=== PATIENT | male | born 1960 | race Caucasian/White ===

== ENCOUNTER 2019-01-03 13:22 | Emergency (ER) | payer OTHER, SELFPAY ==
[2019-01-03 13:27] VITALS: BP 144/88; PULSE 77; RESP 18; TEMP 36.7; O2SAT 95
--- NOTE | 2019-01-03 13:45 | W.ED.GENAD ---
Discharge Plan Disposition Patient Disposition: HOME Condition: Good Discharge Details Chief Complaint: DentalOral Clinical Impression: Infected dental carries Primary Care Provider: Tiara Escamilla ED Provider: Jaxson Floyd Home Meds and New Rx's Prescriptions: New acetaminophen [Mapap Extra Strength] 500 MG tablet 1,000 mg PO Q6H 5 Days Qty: 60 RF: 0 ibuprofen [Motrin IB] 200 MG tablet 600 mg PO Q6H 5 Days Qty: 60 RF: 0 amoxicillin-pot clavulanate 875-125 mg tablet 1 tab PO BID Qty: 14 RF: 0 No Action aspirin [Aspir-81] 81 MG tablet,delayed release (DR/EC) 81 mg PO DAILY RF: 0 lancets [BlacklaneTouch UltraSoft Lancets] 1 EACH misc 1 ea Miscellaneous BID Qty: 100 RF: 5 furosemide [Lasix] 40 MG tablet 40 mg PO PRN Qty: 90 RF: 1 blood sugar diagnostic [OneTouch Ultra Test] 1 EACH strip 1 ea Miscellaneous BID Qty: 100 RF: 5 glipizide 10 MG tablet extended release 24hr 20 mg PO DAILY Qty: 180 RF: 5 Atorvastatin Calcium 20 MG tablet 20 mg PO DAILY Qty: 90 RF: 3 amlodipine 10 MG tablet 10 mg PO DAILY Qty: 90 RF: 3 metformin 1,000 MG tablet 1,000 mg PO BID Qty: 180 RF: 3 allopurinol 300 MG tablet 300 mg PO DAILY Qty: 90 RF: 3 Januvia 100 mg tablet 100 mg PO DAILY Qty: 90 RF: 3 lisinopril 10 mg tablet 10 mg PO DAILY Qty: 90 RF: 3 atenolol 50 mg tablet 150 mg PO DAILY Qty: 270 RF: 3 Discharge Instructions Instructions: Dental Caries (ED) Additional Instructions: Please take medication as directed. Please follow-up immediately with your dentist. If you notice any worsening of your symptoms, or any new symptoms such as vomiting, diarrhea, fever, chills, shortness of breath, chest pain, numbness, weakness, or fainting , please return immediately to the emergency department for reevaluation. Please follow up with your primary care provider as soon as possible for reassessment and reevaluation. As always, it was a pleasure participating in your medical care today. Referrals: Tiara Escamilla MD [Primary Care Provider] - Discharge Data Discharge Date/Time-TO BE ENTERED AT DEPARTURE: 01/03/19 13:55 Medical Decision Making This is a pleasant 58-year-old male who presents today for evaluation of left upper dental pain and mild facial swelling. He has notable dental caries. No evidence of abscess on exam. He has not yet seen a dentist. Vital signs are reassuring, no evidence of meningitis, headache, fever or chills. With no evidence of abscess, I do not think that there is any indication for incision and drainage. The patient does not want to any dental block for pain control. We will give her prescription for antibiotics, as well as the dental sheet for information for dentist to contact. Discussed red flags which to return and the importance of follow-up with a dentist for definitive management. I have extensively reviewed the treatment plan and discharge instructions with the patient. I have addressed all patient concerns at this time. The patient was made aware of what symptoms to monitor for that would warrant a return to the emergency department. Discussed the plan with the patient, they demonstrate verbal understanding and agreement with our assessment and plan at this time. HPI General Date/Time Provider Initiated Documentation: 01/03/19 13:38. HPI Narrative: This is a 58-year-old male who presents for evaluation of dental pain. The patient states that 2 days ago he was eating peanuts, and felt something get stuck in his tooth, since then he has been having worsening pain and swelling for his left upper teeth, as well as some swelling in his left face. He came today for evaluation of potential infection versus abscess. He has a history of very poor dental health, and was not seen a dentist. He denies any concerning red flags of fever, chills, headache, or neck pain. He denies any discharge from his mouth. He denies any recent antibiotics. He has taken Tylenol and Motrin and this is notably improved his symptoms. He has no other complaints or modifying factors at this time. Related Data Home Medications Medication Instructions Recorded Confirmed aspirin [Aspir 81] 81 mg PO DAILY tab-cap 10/29/13 lancets [Onetouch Lancets] #100 ea 05/26/16 blood sugar diagnostic [Onetouch #100 strip 09/17/17 Ultra Test Strips] furosemide [Lasix] 40 mg PO PRN #90 tab-cap 09/17/17 glipizide 20 mg PO DAILY #180 tab-cap 01/07/18 allopurinol 300 mg PO DAILY #90 tab-cap 03/04/18 amlodipine 10 mg PO DAILY #90 tab-cap 03/04/18 metformin 1,000 mg PO BID #180 tab-cap 03/04/18 01/03/19 sitagliptin 100 mg tablet 100 mg PO DAILY #90 tab-cap 18 01/03/19 lisinopril 10 mg tablet 10 mg PO DAILY #90 tab-cap 10/08/18 01/03/19 atenolol 50 mg tablet 150 mg PO DAILY #270 tab-cap 10/09/18 acetaminophen [Mapap Extra 1,000 mg PO Q6H 5 Days #60 tab 01/03/19 Strength] amoxicillin-pot clavulanate 1 tab PO BID #14 tab 01/03/19 ibuprofen [Motrin Ib] 600 mg PO Q6H 5 Days #60 tab 01/03/19 Previous Rx's Medication Instructions Recorded blood sugar diagnostic [Onetouch #100 strip 09/17/17 Ultra Test Strips] furosemide [Lasix] 40 mg PO PRN #90 tab-cap 09/17/17 glipizide 20 mg PO DAILY #180 tab-cap 01/07/18 allopurinol 300 mg PO DAILY #90 tab-cap 03/04/18 amlodipine 10 mg PO DAILY #90 tab-cap 03/04/18 metformin 1,000 mg PO BID #180 tab-cap 03/04/18 sitagliptin 100 mg tablet 100 mg PO DAILY #90 tab-cap 09/19/18 lisinopril 10 mg tablet 10 mg PO DAILY #90 tab-cap 10/08/18 atenolol 50 mg tablet 150 mg PO DAILY #270 tab-cap 10/09/18 acetaminophen [Mapap Extra 1,000 mg PO Q6H 5 Days #60 tab 01/03/19 Strength] amoxicillin-pot clavulanate 1 tab PO BID #14 tab 01/03/19 ibuprofen [Motrin Ib] 600 mg PO Q6H 5 Days #60 tab 01/03/19 Allergies Allergy/AdvReac Type Severity Reaction Status Date / Time No Known Allergies Allergy Unverified 03/04/18 15:48 General Stated Complaint: DentalOral JOHN: 4 Review of Systems Review of Systems All systems reviewed & are unremarkable except as noted in HPI and below PFSH Surgical History Appendectomy Social History Smoking and Tabacco status: Former Tobacco Use Exam Narrative Exam Narrative: 1.Const: Well-nourished, Well-developed, appearing stated age 2.Eyes: PERRL, no conjunctival injection, and symmetrical lids. 3.ENT: Atraumatic external nose and ears. Moist MM. Neck: Symmetric, trachea midline, No thyromegaly. Notable dental caries and very poor dentition. No evidence of periapical or dental abscess. Minimal swelling on the side of the face, no fluctuance, no signs of abscess. No evidence of involvement in the eye. Patient demonstrates good movement of cervical neck. There is no nuchal rigidity, no nuchal tenderness. Patient is able to flex the neck without any difficulty or significant pain. Negative Kernig's and Brudzinski sign. 4.CVS: +S1/S2, No murmurs or gallops. Peripheral pulses 2+ and equal in all extremities. Brisk capillary refill in all extremities. 5.RESP: Unlabored respiratory effort. Clear to auscultation bilaterally. No wheezes rales or rhonchi 6.GI: Soft, Nontender/Nondistended, No hepatosplenomegaly. No guarding or rebound. 7.MSK: Normocephalic/Atraumatic, Extremities w/o deformity or ttp No cyanosis or clubbing, Normal movement of all extremities 8.Skin: Warm, Dry. No rashes or lesions. 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 Sensation grossly intact, no focal neurologic deficits. 10.Psych: (AAO) x3. Appropriate mood and affect Course Vital Signs Temperature 36.7 C 01/03/19 13:27 Pulse 77 01/03/19 13:27 Respiratory Rate 18 01/03/19 13:27 Blood Pressure 144/88 H 01/03/19 13:27 Pulse Oximetry 95 01/03/19 13:27 Temperature 36.7 C 01/03/19 13:27 Temperature Source Temporal Artery Scan 01/03/19 13:27 Pulse 77 01/03/19 13:27 Respiratory Rate 18 01/03/19 13:27 Respiratory Effort Non-Labored 01/03/19 13:29 Blood Pressure 144/88 H 01/03/19 13:27 Blood Pressure Position Sitting 01/03/19 13:27 Pulse Oximetry 95 01/03/19 13:27 Oxygen Delivery Method Room Air 01/03/19 13:27 Oxygen Flow Rate 0 01/03/19 13:27 Pain Level 0 01/03/19 13:37
== END 2019-01-03 13:55 | disposition home or self-care (01) ==
PROVIDERS: Emergency Provider Student in an Organized Health Care Education/Training Program; PCP Internal Medicine
DX: K02.9 Dental caries, unspecified (principal); K04.7 Periapical abscess without sinus; R22.0 Localized swelling, mass and lump, head; E11.9 Type 2 diabetes mellitus without complications; Z79.84 Long term (current) use of oral hypoglycemic drugs; I10 Essential (primary) hypertension
CPT/HCPCS: 99283

== ENCOUNTER 2019-01-17 01:07 | Outpatient (CLI) | payer OTHER, SELFPAY ==
[2019-01-17 10:32] LABS: Abs Immature Grans 0.07 k/cumm (0.0-0.09); HCT 35.4 % (40.0-50.0); HGB 11.8 g/dL (13.5-17.5); Mean Corp. HGB Concentration 33.3 g/dL (32.0-36.0); Mean Corpuscular Hemoglobin 29.1 pg (27.0-33.0); Mean Corpuscular Volume 87.2 fL (80-95); Mean Platelet Volume 10.3 fL (8.0-11.0); Platelet Count 322 x1000/uL (130-400); RBC 4.06 m/cumm (4.50-6.00); RBC Distribution Width 12.9 % (11.8-14.1); White Blood Cell Count 12.36 k/cumm (4.4-10.8)
[2019-01-17 11:09] LABS: Absolute Lymphocyte Count 1.98 k/cumm (1.2-3.4); Atypical Lymphocytes % 3
[2019-01-17 11:10] LABS: Absolute Eosinophil Count 1.61 k/cumm (0.0-0.7); Absolute Monocyte Count 0.62 k/cumm (0.11-0.7); Absolute Neutrophil Count 8.16 k/cumm (1.2-6.7); Diff Comment Manual Differential; RBC Morphology Normal
[2019-01-17 11:49] LABS: ALT 40 U/L (12-78); AST 28 U/L (15-37); Albumin 2.8 g/dL (3.4-5.0); Alkaline Phosphatase 72 U/L (46-116); Anion Gap 11.9 mmol/L (3-11); BUN 44 mg/dL (7-18); Bilirubin, Total 0.4 mg/dL (0.2-1.0); C-Reactive Protein 8.75 mg/dL (0.0-0.3); CO2 26.1 mmol/L (21.0-32.0); CREATININE 1.42 mg/dL (0.70-1.30); Calcium 7.9 mg/dL (8.5-10.1); Chloride 99 mmol/L (98-107); Estimated GFR 50.85 (mL/min/1.73m2); Glucose 152 mg/dL (70-100); Potassium 3.9 mmol/L (3.5-5.1); Sodium 137 mmol/L (136-145); Total Protein 6.9 g/dL (6.4-8.2)
== END 2019-01-17 01:27 ==
PROVIDERS: PCP Internal Medicine; Visit Provider Emergency Medicine
DX: R21 Rash and other nonspecific skin eruption (principal)
CPT/HCPCS: 36415; 80053; 85025; 86140

== ENCOUNTER 2019-01-21 01:06 | Outpatient (CLI) | payer OTHER, SELFPAY ==
[2019-01-21 08:05] LABS: HCT 37.6 % (40.0-50.0); HGB 12.4 g/dL (13.5-17.5); Mean Corpuscular Volume 88.1 fL (80-95); Mean Platelet Volume 10.6 fL (8.0-11.0); Platelet Count 394 x1000/uL (130-400); RBC 4.27 m/cumm (4.50-6.00); RBC Distribution Width 13.1 % (11.8-14.1); White Blood Cell Count 13.86 k/cumm (4.4-10.8)
[2019-01-21 08:16] LABS: Prothrombin Time 10.1 sec (9.3-11.0)
[2019-01-21 08:39] LABS: Absolute Basophil Count 0.14 k/cumm (0.0-0.2); Absolute Eosinophil Count 0.28 k/cumm (0.0-0.7); Absolute Lymphocyte Count 3.19 k/cumm (1.2-3.4); Absolute Monocyte Count 0.97 k/cumm (0.11-0.7); Absolute Neutrophil Count 9.29 k/cumm (1.2-6.7)
[2019-01-21 08:40] LABS: Diff Comment Manual Differential; Polychromasia Present
[2019-01-21 08:41] LABS: Poikilocytes 1+
[2019-01-21 09:31] LABS: ALT 39 U/L (12-78); AST 17 U/L (15-37); Albumin 3.3 g/dL (3.4-5.0); Alkaline Phosphatase 73 U/L (46-116); Anion Gap 11.7 mmol/L (3-11); BUN 20 mg/dL (7-18); Bilirubin, Total 0.4 mg/dL (0.2-1.0); C-Reactive Protein 1.52 mg/dL (0.0-0.3); CO2 27.3 mmol/L (21.0-32.0); CREATININE 1.16 mg/dL (0.70-1.30); Calcium 9.2 mg/dL (8.5-10.1); Chloride 100 mmol/L (98-107); Glucose 297 mg/dL (70-100); Potassium 4.5 mmol/L (3.5-5.1); Sodium 139 mmol/L (136-145); Total Protein 7.2 g/dL (6.4-8.2)
== END 2019-01-21 01:26 ==
PROVIDERS: Emergency Medicine; PCP Internal Medicine; Visit Provider Internal Medicine
DX: T50.905A Adverse effect of unspecified drugs, medicaments and biological substances, initial encounter (principal)
CPT/HCPCS: 36415; 80053; 85025; 85610; 86140

== ENCOUNTER 2019-01-22 09:27 | Outpatient (CLI) | payer OTHER, SELFPAY ==
[2019-01-22 11:36] LABS: Abs Immature Grans 0.31 k/cumm (0.0-0.09); Absolute Lymphocyte Count 1.73 k/cumm (1.2-3.4); HCT 37.9 % (40.0-50.0); HGB 12.2 g/dL (13.5-17.5); Mean Corp. HGB Concentration 32.2 g/dL (32.0-36.0); Mean Corpuscular Hemoglobin 28.4 pg (27.0-33.0); Mean Corpuscular Volume 88.1 fL (80-95); Platelet Count 388 x1000/uL (130-400); White Blood Cell Count 10.79 k/cumm (4.4-10.8)
[2019-01-22 11:59] LABS: Hemoglobin A1C 9.6 % (4.5-6.2)
[2019-01-22 12:01] LABS: Absolute Eosinophil Count 0.43 k/cumm (0.0-0.7); Absolute Monocyte Count 0.65 k/cumm (0.11-0.7); Absolute Neutrophil Count 7.77 k/cumm (1.2-6.7); Diff Comment Manual Differential; Polychromasia Present
[2019-01-22 12:06] LABS: ALT 39 U/L (12-78); AST 16 U/L (15-37); Albumin 3.3 g/dL (3.4-5.0); Alkaline Phosphatase 75 U/L (46-116); Anion Gap 9.7 mmol/L (3-11); BUN 17 mg/dL (7-18); Bilirubin, Total 0.4 mg/dL (0.2-1.0); CO2 28.3 mmol/L (21.0-32.0); CREATININE 1.05 mg/dL (0.70-1.30); Calcium 9.5 mg/dL (8.5-10.1); Chloride 100 mmol/L (98-107); Glucose 371 mg/dL (70-100); Potassium 5.3 mmol/L (3.5-5.1); Sodium 138 mmol/L (136-145); Total Protein 7.3 g/dL (6.4-8.2)
[2019-01-22 12:26] LABS: ESR 38 MM/HR (1-20)
== END 2019-01-22 09:47 ==
PROVIDERS: PCP Internal Medicine; Visit Provider Internal Medicine
DX: E11.9 Type 2 diabetes mellitus without complications (principal); I10 Essential (primary) hypertension
CPT/HCPCS: 36415; 80053; 85652; 83036; 85025

== ENCOUNTER 2019-07-21 10:02 | Outpatient (CLI) | payer OTHER, SELFPAY ==
[2019-07-21 12:34] LABS: Abs Immature Grans 0.02 k/cumm (0.0-0.09); Absolute Basophil Count 0.05 k/cumm (0.0-0.2); Absolute Eosinophil Count 0.27 k/cumm (0.0-0.7); Absolute Lymphocyte Count 1.22 k/cumm (1.2-3.4); Absolute Monocyte Count 0.69 k/cumm (0.11-0.7); Absolute Neutrophil Count 8.01 k/cumm (1.2-6.7); Basophils % 0.5; Eosinophils % 2.6; HGB 13.7 g/dL (13.5-17.5); Immature Grans % 0.2; Lymphocytes % 11.9; Mean Corp. HGB Concentration 32.6 g/dL (32.0-36.0); Mean Corpuscular Hemoglobin 29.2 pg (27.0-33.0); Mean Corpuscular Volume 89.6 fL (80-95); Mean Platelet Volume 11.5 fL (8.0-11.0); Monocytes % 6.7; Neutrophils % 78.1; Platelet Count 380 x1000/uL (130-400); RBC 4.69 m/cumm (4.50-6.00); RBC Distribution Width 13.4 % (11.8-14.1); White Blood Cell Count 10.26 k/cumm (4.4-10.8)
[2019-07-21 12:43] LABS: ALT 53 U/L (16-63); AST 25 U/L (15-37); Albumin 3.6 g/dL (3.4-5.0); Alkaline Phosphatase 70 U/L (46-116); Anion Gap 15.3 mmol/L (3-11); BUN 14 mg/dL (7-18); Bilirubin, Total 0.3 mg/dL (0.2-1.0); CO2 24.7 mmol/L (21.0-32.0); CREATININE 1.17 mg/dL (0.70-1.30); Calcium 9.9 mg/dL (8.5-10.1); Chloride 100 mmol/L (98-107); Glucose 386 mg/dL (70-100); Potassium 4.5 mmol/L (3.5-5.1); Sodium 140 mmol/L (136-145); Total Protein 7.5 g/dL (6.4-8.2)
== END 2019-07-21 10:22 ==
PROVIDERS: PCP Internal Medicine; Visit Provider Internal Medicine
DX: E11.9 Type 2 diabetes mellitus without complications (principal); R21 Rash and other nonspecific skin eruption; F50.9 Eating disorder, unspecified
CPT/HCPCS: 36415; 80053; 85025

== ENCOUNTER 2021-06-03 09:17 | Outpatient (REF) | payer OTHER, SELFPAY ==
[2021-06-03 14:18] LABS: CREATININE 1.1 mg/dL (0.70-1.30); Potassium 4.2 mmol/L (3.5-5.1)
[2021-06-03 14:22] LABS: Hemoglobin A1C 11.5 % (<5.7)
[2021-06-03 19:28] LABS: Calculated LDL 90 mg/dL (<100); Cholesterol 179 mg/dL (<200); HDL Cholesterol 44 mg/dL (40-60); Triglyceride 228 mg/dL (<150)
== END 2021-06-03 09:18 | disposition home or self-care (01) ==
LOC: LBN 09:17
PROVIDERS: PCP Nurse Practitioner; Visit Provider Nurse Practitioner
DX: E78.5 Hyperlipidemia, unspecified (principal); I10 Essential (primary) hypertension; E11.65 Type 2 diabetes mellitus with hyperglycemia
CPT/HCPCS: 80061; 82565; 83036; 84132

== ENCOUNTER 2022-07-06 16:03 | Outpatient (REF) | payer BC, SELFPAY ==
[2022-07-06 22:00] LABS: Hemoglobin A1C 11.7 % (<5.7)
[2022-07-06 22:04] LABS: Anion Gap 12.5 mmol/L (3-11); BUN 17 mg/dL (7-18); CO2 27.5 mmol/L (21.0-32.0); CREATININE 1.1 mg/dL (0.70-1.30); Calcium 9.8 mg/dL (8.5-10.1); Chloride 100 mmol/L (98-107); Cholesterol 210 mg/dL (<200); Glucose 420 mg/dL (74-106); HDL Cholesterol 44 mg/dL (40-60); Potassium 4.5 mmol/L (3.5-5.1); Sodium 140 mmol/L (136-145); Triglyceride 541 mg/dL (<150)
[2022-07-06 22:26] LABS: LDL CHOLESTEROL 103 mg/dL (<100)
== END 2022-07-06 16:04 | disposition home or self-care (01) ==
LOC: LBN 16:03
PROVIDERS: PCP Nurse Practitioner; Visit Provider Nurse Practitioner
DX: I10 Essential (primary) hypertension (principal); E78.5 Hyperlipidemia, unspecified; E11.9 Type 2 diabetes mellitus without complications
CPT/HCPCS: 80048; 80061; 83721; 83036

== ENCOUNTER 2023-03-06 20:33 | Outpatient (REF) | payer BC, SELFPAY | END 2023-03-06 20:34 | disposition home or self-care (01) | LOC: LBN 20:33 | PROVIDERS: PCP Nurse Practitioner Family; Visit Provider Nurse Practitioner Family | DX: E11.65 Type 2 diabetes mellitus with hyperglycemia (principal) | CPT/HCPCS: 83036 ==

== ENCOUNTER 2023-08-09 08:11 | Emergency (ER) | payer BC, SELFPAY ==
[2023-08-09] VITALS (10 sets, daily range): BP systolic 164–167; BP diastolic 84–85; PULSE 84–106; RESP 18; O2SAT 91–96
--- NOTE | 2023-08-09 08:25 | DI.CT_ITS ---
Exam(s) CT ABDOMEN PELVIS WO CLINICAL HISTORY: . TECHNIQUE: Imaging Protocol: Axial computed tomography images with coronal and sagittal reformatted images were created and reviewed. COMPARISON: No exams were available for comparison FINDINGS: Lung Bases: Normal where visualized. Adrenal glands: No mass is seen. Lymph nodes: Within normal limits. Abdominal Aorta: Abdominal portion non-dilated. Bladder:Symmetric distention. Mild gross wall thickening. No stones. No visible mass. Bowel: Mild diverticulosis. No evidence of diverticulitis. No obstruction or bowel wall thickening. Peritoneal cavity: No ascites, collection or mesenteric inflammatory response Reproductive organs: Markedly enlarged prostate. Bones: Degenerative changes, unremarkable for age. Soft Tissues: Within normal limits. Liver: Mildly enlarged. [id number] hepatic steatosis. No suspicious mass. Gallbladder and biliary tract: No radiodense calculus. No biliary dilation. Nowall thickening. Pancreas: No abnormal calcifications or inflammatory process. Spleen: Normal. Kidneys: Normal size, contour and axis. No radiodense stones. No obstructive uropathy. Bilateral s imple renal cysts. No follow-up recommended. No suspicious masses seen. IMPRESSION: Bilateral renal cysts. No evidence urinary tract calculi or hydronephrosis. Markedly enlarged prostate and mild bladder wall thickening. RADIATION DOSE DELIVERED: 1,162.39mGy.cm Total DLP 1,162.39mGy.cm Total DLP 1,162.39mGy.cm Total DLP 1,162.39mGy.cm Total DLP DATA REPOSITORY: All CT scans at this facility are submitted to the National Radiology Data Registry (NRDR) Dose Index Registry (DIR) with the [employer] (ACR). RADIATION OPTIMIZATION: All CT scans at this facility use at least one of these dose optimization te chniques: automated exposure control; mA and/or kV adjustment per patient size (includes targeted exa ms where dose is matched to clinical indication); or iterative reconstruction.
--- NOTE | 2023-08-09 09:41 | ED.GENADUL_ITS ---
Discharge Plan Disposition Patient Disposition: Home Discharge Details Chief Complaint: FlankPain Clinical Impression: Left flank pain Primary Care Provider: Yuly Waters ED Provider: Jaxson Floyd Home Meds and New Rx's Prescriptions: No Action amlodipine 10 mg tablet 10 mg PO DAILY Qty: 90 4RF atenolol 50 mg tablet 50 mg PO DAILY Qty: 90 4RF Rx Instructions: total dose 150 mg metformin 1,000 mg tablet 1,000 mg PO BID Qty: 180 3RF (DME) OneTouch Ultra Blue Test Strip Strip See Rx Instructions .ROUTE .MEDSUPPLY Qty: 100 4RF Rx Instructions: 2 times daily lisinopril 30 mg tablet 30 mg PO DAILY Qty: 90 3RF Januvia 100 mg tablet 100 mg PO DAILY Qty: 90 3RF atorvastatin 20 mg tablet 20 mg PO DAILY Qty: 90 3RF glipizide 10 mg tablet extended release 24hr 20 mg PO DAILY Qty: 180 3RF aspirin [Aspir-81] 81 MG tablet,delayed release (DR/EC) 81 mg PO DAILY (DME) lancets [OneTouch UltraSoft Lancets] 1 EACH misc 1 ea Miscellaneous BID Qty: 100 Rx Instructions: ultra mini glucometer E11.9 (DME) OneTouch Ultra Test strip 1 ea Miscellaneous BID Qty: 100 5RF Rx Instructions: ultramini glucometer E11.9 allopurinol 300 mg tablet 300 mg PO DAILY Qty: 90 4RF atenolol 100 mg tablet 100 mg PO DAILY Qty: 90 4RF Discharge Instructions Instructions: Flank Pain (ED) Additional Instructions: At this time your CAT scan shows no evidence of current kidney stone. I do suspect that you may have passed a kidney stone, or may have some bladder irritation causing the pain. Please follow-up closely with Dr. Harmon. We have placed a referral on your behalf. They will contact you with an appointment time. Please continue to take your diabetes medications, and stay well- hydrated. If you notice any worsening of your symptoms, or any new symptoms such as vomiting, diarrhea, fever, chills, shortness of breath, chest pain, numbness, weakness, or fainting , please return immediately to the emergency department for reevaluation. Please follow up with your primary care provider as soon as possible for reassessment and reevaluation. As always, it was a pleasure participating in your medical care today. Referrals: Yuly Waters NP [Primary Care Provider] - Medical Decision Making Please refer to downtime documentation Patient was seen on downtime. Please refer to downtime paperwork. In summary patient has left-sided flank pain that radiates to his left groin for the past week, states that it feels identical to his previous kidney stones. 11:47 AM On reassessment the patient states that his pain has completely resolved, and he feels much better. Laboratory work-up demonstrates minimal white count, electrolytes demonstrate a slightly low sodium at 130, renal function with a creatinine of 1.4 and a GFR 55. Urinalysis shows some ketones, small amount of blood and RBCs, no evidence of UTI though. No nitrites, no leuk esterase. Suspect mild dehydration as a component. Blood sugar is high, we will give some subcutaneous insulin here, recommend continued medications at home. That being said symptoms appear inconsistent with DKA. Bicarb is normal. Patient appears clinically well, no tachycardia, he was rehydrated here and appears notably stable. CT scan shows no evidence of significant stone, there is an enlarged prostate and some mild bladder wall thickening. He did urinate and shows no evidence of UTI. Suspect recently passed stone, or potential bladder irritation from noninfectious etiology. Patient will be discharged home with recommendations for close follow-up with urology. Discussed red flags for which to return. I have extensively reviewed the treatment plan and discharge instructions with the patient. I have addressed all patient concerns at this time. The patient was made aware of what symptoms to monitor for that would warrant a return to the emergency department. Discussed the plan with the patient, they demonstrate verbal understanding and agreement with our assessment and plan at this time. The documentation in this chart was dictated using [employer] dictation software. Please excuse any dictation errors. FINDINGS: Lung Bases: Normal where visualized. Adrenal glands: No mass is seen. Lymph nodes: Within normal limits. Abdominal Aorta: Abdominal portion non-dilated. Bladder:Symmetric distention. Mild gross wall thickening. No stones. No visible mass. Bowel: Mild diverticulosis. No evidence of diverticulitis. No obstruction or bowel wall thickening. Peritoneal cavity: No ascites, collection or mesenteric inflammatory response Reproductive organs: Markedly enlarged prostate. Bones: Degenerative changes, unremarkable for age. Soft Tissues: Within normal limits. Liver: Mildly enlarged. [id number] hepatic steatosis. No suspicious mass. Gallbladder and biliary tract: No radiodense calculus. No biliary dilation. Nowall thickening. Pancreas: No abnormal calcifications or inflammatory process. Spleen: Normal. Kidneys: Normal size, contour and axis. No radiodense stones. No obstructive uropathy. Bilateral simple renal cysts. No follow-up recommended. No suspicious masses seen. IMPRESSION: Bilateral renal cysts. No evidence urinary tract calculi or hydronephrosis. Markedly enlarged prostate and mild bladder wall thickening. HPI General Date/Time Provider Initiated Documentation: 08/09/23 09:41 . HPI Narrative: Patient was seen on downtime. Please refer to downtime paperwork. In summary patient has left-sided flank pain that radiates to his left groin for the past week, states that it feels identical to his previous kidney stones. Related Data Home Medications Medication Instructions Recorded Confirmed aspirin 81 mg tablet,delayed 81 mg PO DAILY 10/29/13 05/10/23 release (Aspir-) lancets (A[employer] Mobile Assets CorporationTouch UltraSoft #100 ea 05/26/16 05/10/23 Lancets) blood sugar diagnostic (OneTouch #100 strips 01/27/19 05/10/23 Ultra Test strips) blood sugar diagnostic (OneTouch #100 ea 03/23/20 05/10/23 Ultra Blue Test Strip) amlodipine 10 mg tablet 10 mg PO DAILY #90 tab-caps 06/12/22 05/10/23 atenolol 50 mg tablet 50 mg PO DAILY #90 tabs 06/12/22 05/10/23 metformin 1,000 mg tablet 1,000 mg PO BID #180 tab-caps 06/12/22 05/10/23 lisinopril 30 mg tablet 30 mg PO DAILY #90 tabs 12/12/22 05/10/23 allopurinol 300 mg tablet 300 mg PO DAILY #90 tab-caps 01/03/23 05/10/23 atorvastatin 20 mg tablet 20 mg PO DAILY #90 tabs 03/06/23 05/10/23 glipizide 10 mg tablet, extended 20 mg PO DAILY #180 tab-caps 03/06/23 05/10/23 release 24 hr sitagliptin phosphate 100 mg 100 mg PO DAILY #90 tab-caps 03/06/23 05/10/23 tablet (Januvia) atenolol 100 mg tablet 100 mg PO DAILY #90 tabs 07/03/23 Previous Rx's Medication Instructions Recorded blood sugar diagnostic (OneTouch #100 strips 01/27/19 Ultra Test strips) blood sugar diagnostic (OneTouch #100 ea 03/23/20 Ultra Blue Test Strip) amlodipine 10 mg tablet 10 mg PO DAILY #90 tab-caps 06/12/22 atenolol 50 mg tablet 50 mg PO DAILY #90 tabs 06/12/22 metformin 1,000 mg tablet 1,000 mg PO BID #180 tab-caps 06/12/22 lisinopril 30 mg tablet 30 mg PO DAILY #90 tabs 12/12/22 allopurinol 300 mg tablet 300 mg PO DAILY #90 tab-caps 01/03/23 atorvastatin 20 mg tablet 20 mg PO DAILY #90 tabs 03/06/23 glipizide 10 mg tablet, extended 20 mg PO DAILY #180 tab-caps 03/06/23 release 24 hr sitagliptin phosphate 100 mg 100 mg PO DAILY #90 tab-caps 03/06/23 tablet (Januvia) atenolol 100 mg tablet 100 mg PO DAILY #90 tabs 07/03/23 Allergies Allergy/AdvReac Type Severity Reaction Status Date / Time amoxicillin [From Augmentin] Allergy Severe severe Verified 05/10/23 08:34 rash with itching clavulanic acid Allergy Severe severe Verified 05/10/23 08:34 [From Augmentin] rash with itching General JOHN: 4 Review of Systems All systems reviewed & are unremarkable except as noted in HPI and below PFSH All Active Problems (Updated 08/09/23 @ 11:52 by Jaxson Floyd DO) Left flank pain (Acute) Gout (Acute) Diabetes mellitus type II, uncontrolled (Chronic) Essential hypertension (Acute) Hyperlipidemia (Acute) Obesity (Acute) Retinopathy (Acute 05/15/17) 05/15/17; [facility]; RIGHT EYE, MILD 02/18/18;[facility] LEFT EYE MILD RETINOPATHY 09/26/21 [facility] MILD RETINOPATHY OU. 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 Surgical History Appendectomy Status post appendectomy Social History Smoking/Tobacco Use Status: Former Tobacco Use Tobacco: How many years used: 4 Smoking risk assessment performed?: Yes Alcohol Intake: former Drug use: Never Caregiver/Support person: No Household members: family Housing: house Communication Needs: None and Corrective Lenses Do you need help understanding health information?: Never Pets and animals: No Sexually active: No Do you think of yourself as: bisexual Current gender identity: male What is your relationship status?: never How often do you talk on the phone with friends or family?: twice per week How often do you get together with friends or relatives?: twice per week How often do you attend holiness or mormon services?: decline to answer Do you belong to any clubs or organized social groups?: no Panel score (0-1 are the most socially isolated patients): 1 What type of physical activity do you participate in: walking Duration: 15-30 minutes/day Frequency: 3-4 times per week Deedee/Anglican: No preference Special deedee needs: No Seatbelt use: always Helmet use: No Drive 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
[2023-08-09] MEDS: Acetaminophen 500 MG TAB (10:20)
[2023-08-09] MEDS: Ketorolac 15 MG/ML VIAL (10:21)
[2023-08-09] MEDS: Tamsulosin 0.4 MG CAPCR PO (10:22)
[2023-08-09 11:21] LABS: Absolute Basophil Count 0.02 10^3/uL (0.0-0.2); Absolute Monocyte Count 0.14 10^3/uL (0.1-0.8); Absolute Neutrophil Count 11.46 10^3/uL (1.2-6.7); Basophils % 0.2; HCT 38.1 % (40.0-50.0); HGB 13.1 g/dL (13.5-17.5); Immature Grans % 0.5; Lymphocytes % 5.7; MCH 29.4 pg (27.0-33.0); MCHC 34.4 % (32.0-36.0); MCV 86 fL (80-95); MPV 11.1 fL (8.0-11.0); Monocytes % 1.1; Neutrophils % 92.5; Platelet Count 337 10^3/uL (130-400); RBC 4.45 10^6/uL (4.36-5.78); RDW 12.4 % (11.8-14.1); RDW-SD 38.5 fL; WBC 12.38 10^3/uL (4.4-10.8)
[2023-08-09 11:22] LABS: Abs Immature Grans 0.06 10^3/uL (0.0-0.06); Albumin 3.3 g/dL (3.4-5.0); BUN 21 mg/dL (7-18); CREATININE 1.4 mg/dL (0.70-1.30); Calcium 9.6 mg/dL (8.5-10.1); Estimated GFR 55.78 (mL/min/1.73m2); Glucose 480 mg/dL (74-106); Total Protein 7.8 g/dL (6.4-8.2)
[2023-08-09 11:23] LABS: ALT 19 U/L (16-63); AST 12 U/L (15-37); Alkaline Phosphatase 75 U/L (46-116); Anion Gap 16.9 mmol/L (3-11); Bilirubin, Total 0.7 mg/dL (0.2-1.0); CO2 22.1 mmol/L (21.0-32.0); Chloride 91 mmol/L (98-107); Potassium 4.2 mmol/L (3.5-5.1); Sodium 130 mmol/L (136-145)
[2023-08-09 11:32] LABS: Bilirubin Negative (Negative); Blood Small (Negative); Clarity Sl Cloudy (Clear); Glucose >=1000 mg/dL (Negative); Ketones 80 mg/dL (Negative); Leukocyte Esterase Negative (Negative); Nitrite Negative (Negative); Specific Gravity 1.015 (1.005-1.025); Urobilinogen 0.2 mg/dL (Up to 0.2)
[2023-08-09 11:42] LABS: Bacteria Few HPF (Negative); C & S Indicated? No/Sq. Contamination; Casts Negative LPF (Negative); Crystals Negative HPF (Negative); Epithelial Cells Moderate HPF (Negative); Mucus Trace (Negative); WBC 0-2 HPF (0-5)
--- NOTE | 2023-08-09 11:52 | NUR.NOTE ---
Nursing Note: urology referral
[2023-08-09] MEDS: Insulin REGULAR-Human 100 UNITS/ML UNIT 15 UNITS SC (12:06)
== END 2023-08-09 12:57 | disposition home or self-care (01) ==
PROVIDERS: Emergency Provider Student in an Organized Health Care Education/Training Program; PCP Nurse Practitioner Family
DX: K57.30 Diverticulosis of large intestine without perforation or abscess without bleeding (principal); Q61.02 Congenital multiple renal cysts; N40.0 Benign prostatic hyperplasia without lower urinary tract symptoms; I10 Essential (primary) hypertension; E78.5 Hyperlipidemia, unspecified; Z79.84 Long term (current) use of oral hypoglycemic drugs; Z79.82 Long term (current) use of aspirin
CPT/HCPCS: 80053; 96374; 99284; 74176; 81003; 81015; 85025; 99283; J1885

== ENCOUNTER 2023-08-12 15:19 | Emergency (ER) | payer BC, SELFPAY ==
[2023-08-12 15:23] VITALS: BP 149/84; PULSE 70; RESP 16; TEMP 36.9; O2SAT 96
[2023-08-12] MEDS: MORPHine 10 MG/ML VIAL 2 MG IVP (16:04)
[2023-08-12 16:08] LABS: Abs Immature Grans 0.06 10^3/uL (0.0-0.06); Absolute Basophil Count 0.06 10^3/uL (0.0-0.2); Absolute Lymphocyte Count 1.54 10^3/uL (1.2-3.4); Absolute Monocyte Count 1.25 10^3/uL (0.1-0.8); Basophils % 0.5; Eosinophils % 0.8; HCT 42.4 % (40.0-50.0); HGB 14.3 g/dL (13.5-17.5); Immature Grans % 0.5; Lymphocytes % 12.1; MCHC 33.7 % (32.0-36.0); MCV 86 fL (80-95); MPV 10.7 fL (8.0-11.0); Monocytes % 9.8; Neutrophils % 76.3; Platelet Count 372 10^3/uL (130-400); RBC 4.93 10^6/uL (4.36-5.78); RDW 12.5 % (11.8-14.1); RDW-SD 38.9 fL; WBC 12.74 10^3/uL (4.4-10.8)
[2023-08-12] MEDS: Ondansetron 4 MG/2 ML VIAL (16:08)
[2023-08-12] MEDS: Ondansetron 4 MG/2 ML VIAL IVP (16:08)
[2023-08-12 16:13] LABS: Absolute Neutrophil Count 9.72 10^3/uL (1.2-6.7)
[2023-08-12 16:24] LABS: ALT 18 U/L (16-63); AST 10 U/L (15-37); Albumin 3.4 g/dL (3.4-5.0); Alkaline Phosphatase 82 U/L (46-116); Anion Gap 10.5 mmol/L (3-11); BUN 17 mg/dL (7-18); Bilirubin, Total 0.5 mg/dL (0.2-1.0); C-Reactive Protein 1.15 mg/dL (0.0-0.3); CO2 28.5 mmol/L (21.0-32.0); CREATININE 1.2 mg/dL (0.70-1.30); Calcium 10.5 mg/dL (8.5-10.1); Chloride 96 mmol/L (98-107); Estimated GFR 67.11 (mL/min/1.73m2); Glucose 332 mg/dL (74-106); Lipase 78 U/L (16-77); Sodium 135 mmol/L (136-145); Total Protein 8.2 g/dL (6.4-8.2)
[2023-08-12] MEDS: Normal Saline - Diluent 50 ML VIAL IJ (16:29)
[2023-08-12] MEDS: Omnipaque 350 MG/ML 100 ML BTL IJ (16:30)
[2023-08-12] MEDS: Normal Saline Flush 10 ML SYR IVP (16:40)
--- NOTE | 2023-08-12 16:53 | DI.CT_ITS ---
Exam(s) CT LUMBAR SPINE RECONS CT ABDOMEN PELVIS W EXAM: CT ABDOMEN PELVIS W CLINICAL HISTORY: left flank and llq pain. TECHNIQUE: Imaging Protocol: Axial computed tomography images with coronal and sagittal reformatted images were created and reviewed Axial, coronal and sagittal images of the lumbar spine were reconstructed using bone algorithm. CONTRAST MATERIAL: Intravenous: Omnipaque 350 Contrast volume:100 ml Oral: / no COMPARISON: CT CT ABDOMEN PELVIS WO from 08/09/[address] LUMBAR SPINE RECONS from 08/12/2023 FINDINGS: ABDOMEN and PELVIS:: Lung Bases: Normal where visualized. Liver: Mild hepatic steatosis. No measurable mass. Gallbladder and biliary tract: No radiodense calculus or dilation. Pancreas: Normal density, no abnormal calcifications or inflammatory process. Spleen: Normal. Kidneys: Normal size, contour and axis. No radiodense stones or obstructive uropathy. Bilateral may l cysts. No suspicious masses seen. Adrenal glands: No masses seen. Vasculature: Abdominal aorta non-dilated. Soft tissues: Small fatty containing right inguinal hernia. Bladder: Mild diffuse wall thickening. No calculi.No focal mass. Bowel: Abnormal wall thickening of the duodenum. Surrounding stranding and question of small ulcerat ions. No perforation. No obstruction. Diverticulosis. No evidence of diverticulitis. Peritoneal cavity: No ascites or focal collection. Bones: Unremarkable for age. Reproductive organs: Enlarged prostate. Lymph nodes: Unremarkable. Lumbar Spine: No evidence of acute fracture. No spondylolysis or spondylolisthesis. Endplate osteophytes throughout, flowing osteophytes in the lower thoracic region. Prominent right-sided osteophytes at L2-3. L3-4: Broad-based disc bulging, eccentric toward the left. Question of superior extrusion of disc ma terial behind the L3 vertebral body. Moderate central canal stenosis. Left neural foraminal narrowi ng. Mild narrowing of the L4-5 disc space. Circumferentially projecting osteophytes and disc bulging. L eft paracentral disc protrusion appears to impinge on thecal sac. Mild facet degenerative changes. Mild central canal stenosis. Mild neural foraminal narrowing. Mild disc bulging at L5-S1. Facet degenerative changes cause bilateral neural foraminal encroachment . IMPRESSION:: Wall thickening and surrounding stranding the duodenum consistent with duodenitis. Que stion of small ulcers but no evidence of perforation. Degenerative changes of the lumbar spine. Left paracentral disc herniations at L3-4 and L4-5. RADIATION DOSE DELIVERED: Total DLP DATA REPOSITORY: All CT scans at this facility are submitted to the National Radiology Data Registry (NRDR) Dose Index Registry (DIR) with the [employer] (ACR). RADIATION OPTIMIZATION: All CT scans at this facility use at least one of these dose optimization te chniques: automated exposure control; mA and/or kV adjustment per patient size (includes targeted exa ms where dose is matched to clinical indication); or iterative reconstruction.
--- NOTE | 2023-08-12 17:20 | DI.VRAD_ITS ---
PROCEDURE INFORMATION: Exam: CT Abdomen And Pelvis With Contrast Exam date and time: 08/12/2023 4:39 PM Age: 63 years old Clinical indication: Other: Left flank and llq pain; Prior surgery; Surgery date: 6+ months; Surgery type: Appendectomy TECHNIQUE: Imaging protocol: Computed tomography of the abdomen and pelvis with contrast. Contrast material: OMNIPAQUE 350; Contrast volume: 100 ml; Contrast route: INTRAVENOUS (IV); COMPARISON: CT ABDOMEN PELVIS WO 08/09/2023 9:26 AM FINDINGS: Diaphragm: There is a small hiatal hernia. Liver: There is mild hepatic steatosis. Gallbladder and bile ducts: Normal. No calcified stones. No ductal dilation. Pancreas: See Stomach and bowel finding. Spleen: Normal. No splenomegaly. Adrenal glands: Normal. No mass. Kidneys and ureters: There are multiple cysts in the bilateral kidneys of varying sizes. The dominant cyst in the left upper pole kidney medially which measures up to 4.9 cm., some of these cysts are too small to be characterized. Stomach and bowel: There is mild mucosal thickening of the 1st and 2nd portion of duodenum with inner mucosal enhancement. There is a small ulcerations suspected (44 series 5, 41 series 6 ) There is mild paraduodenal edema which extends to the head of the pancreas and to the right anterior pararenal space . There is diverticulosis of the sigmoid colon without focal acute inflammation. No bowel obstruction. Appendix: No evidence of appendicitis. Intraperitoneal space: Unremarkable. No free air. No significant fluid collection. Vasculature: Unremarkable. No abdominal aortic aneurysm. Lymph nodes: Unremarkable. No enlarged lymph nodes. Urinary bladder: Prostate is enlarged elevating the floor of the urinary bladder. Reproductive: See Urinary bladder finding. Bones/joints: Disc degenerative changes with mild loss of disc height at L4-L5. Soft tissues: There is small fat containing right inguinal hernia. IMPRESSION: 1. Mild mucosal thickening and mucosal enhancement of the duodenal bulb and 2nd portion of duodenum may represent duodenitis. There is small ulcerations suspected and may represent peptic ulcer disease. The edema extends to the periduodenal region and right anterior pararenal space. Other differential may include peraduodenal pancreatitis. Consider clinical correlation with lipase. 2. Prostatomegaly. 3. No hydronephrosis or nephrolithiasis. Dictated and Authenticated by: Clark Jara MD. Ordering:MATTHEW Mcfarland MD
[2023-08-12 17:29] LABS: Bilirubin Negative (Negative); Blood Small (Negative); Clarity Clear (Clear); Glucose 500 mg/dL (Negative); Ketones Negative (Negative); Leukocyte Esterase Negative (Negative); Nitrite Negative (Negative); Urobilinogen 0.2 mg/dL (Up to 0.2); pH 5.5 (5-8)
[2023-08-12 17:41] LABS: Bacteria Few HPF (Negative); Crystals Negative HPF (Negative); Epithelial Cells Moderate HPF (Negative); Mucus Moderate (Negative); WBC 0-2 HPF (0-5)
[2023-08-12 17:42] LABS: C & S Indicated? No/Sq. Contamination; Casts 0-2 Hyaline LPF (Negative)
--- NOTE | 2023-08-12 18:06 | DI.VRAD_ITS ---
Addendum created by Clark Jara DO on 08/12/2023 6:18:36 PM EDT: CT abdomen and pelvis from the same day is also utilized in the report of this examination. Initial report created on 08/12/2023 6:06:31 PM EDT: PROCEDURE INFORMATION: Exam: CT Lumbar Spine Without Contrast Exam date and time: 08/12/2023 4:39 PM Age: 63 years old Clinical indication: Other: Llq pain TECHNIQUE: Imaging protocol: Computed tomography of the lumbar spine without contrast. COMPARISON: CT ABDOMEN PELVIS WO 08/09/2023 9:[address] abdominal pelvis with IV contrast 08/12/2023. FINDINGS: Bones/joints: No acute fracture. Mild levoscoliosis of the lumbar spine. Normal alignment. Disc degenerative changes with mild to moderate loss of disc height at L4-L5. No significant disc bulge or herniation. No severe spinal canal stenosis. No significant neural foraminal narrowing. L1-L2: Mild posterior disc bulge. There is no significant spinal canal or right neural foraminal stenosis. Mild encroachment of the disc to the left neural foramen. L2-L3: No significant posterior contour abnormality. There is no spinal canal stenosis or neural foraminal stenosis. Mild bilateral facet arthropathy. L3-L4: There is disc bulge asymmetric to the left. There is suspicion of superior central disc protrusion. Ligamentum flavum hypertrophy and ukpf-fr-uqoixyfc bilateral facet arthropathy contribute to ojgh-px-bwjbitvx spinal canal stenosis. There is mild left neural foraminal stenosis due to disc encroachment. There is no right neural foraminal stenosis. L4-L5: Mild spinal canal stenosis due to posterior spurring, disc bulge, ligamentum flavum hypertrophy and nfje-xa-puqnjkks bilateral facet arthropathy. Mild left neural foraminal stenosis due to disc encroachment. Kcpq-te-ajquenwe right neural foraminal stenosis due to disc encroachment and spurring. L5-S1: No significant posterior contour abnormality. There is no spinal canal stenosis. Nsiw-ln-srvpular bilateral facet arthropathy. There is moderate bilateral neural foraminal stenosis due to spurring left greater than right. Kidneys and ureters: There are cysts in the bilateral kidneys. The dominant cyst in the left upper pole kidney medially has thin calcification along the medial wall. There is cysts in the bilateral kidneys. Reproductive: Prostate is enlarged. Soft tissues: Unremarkable. IMPRESSION: 1. No acute fracture or subluxation. 2. At L3-L4, there is a disc bulge asymmetric to the left. There is superimposed superior central disc extrusion which may contribute to tgiv-lh-qydejefv spinal canal stenosis. This can be further evaluated with an MRI if the patient continues to have symptoms . Additional degenerative changes are described above. Dictated and Authenticated by: Clark Jara MD. Ordering:MATTHEW Mcfarland MD
--- NOTE | 2023-08-12 18:16 | NUR.NOTE ---
Referral will be faxed to NeuroSurgery at [facility] due to Lumbar Radiculopath on the Left side. Nursing Note:
[2023-08-12 18:30] VITALS: BP 152/88; TEMP 36.4; O2SAT 94
--- NOTE | 2023-08-12 21:43 | ED.GENADUL_ITS ---
Discharge Plan Disposition Patient Disposition: Home Condition: Stable Discharge Details Clinical Impression: Herniated lumbar intervertebral disc Primary Care Provider: Yuly Waters ED Provider: Bruna Tariq Home Meds and New Rx's Prescriptions: New cyclobenzaprine 10 mg tablet 10 mg PO TID PRNQty: 10 0RF methylprednisolone [Medrol (Jeremy)] 4 mg tablets,dose pack See Rx Instructions .ROUTE .COMPLEX Qty: 21 0RF Rx Instructions: orally per package directions Continued amlodipine 10 mg tablet 10 mg PO DAILY Qty: 90 4RF atenolol 50 mg tablet 50 mg PO DAILY Qty: 90 4RF Rx Instructions: total dose 150 mg metformin 1,000 mg tablet 1,000 mg PO BID Qty: 180 3RF (DME) OneTouch Ultra Blue Test Strip Strip See Rx Instructions .ROUTE .MEDSUPPLY Qty: 100 4RF Rx Instructions: 2 times daily lisinopril 30 mg tablet 30 mg PO DAILY Qty: 90 3RF Januvia 100 mg tablet 100 mg PO DAILY Qty: 90 3RF atorvastatin 20 mg tablet 20 mg PO DAILY Qty: 90 3RF glipizide 10 mg tablet extended release 24hr 20 mg PO DAILY Qty: 180 3RF aspirin [Aspir-81] 81 MG tablet,delayed release (DR/EC) 81 mg PO DAILY (DME) lancets [OneTouch UltraSoft Lancets] 1 EACH misc 1 ea Miscellaneous BID Qty: 100 Rx Instructions: ultra mini glucometer E11.9 (DME) OneTouch Ultra Test strip 1 ea Miscellaneous BID Qty: 100 5RF Rx Instructions: ultramini glucometer E11.9 allopurinol 300 mg tablet 300 mg PO DAILY Qty: 90 4RF atenolol 100 mg tablet 100 mg PO DAILY Qty: 90 4RF Discharge Instructions Additional Instructions: take Tylenol 650 every 4-6 hours May take oxycodone as needed for pain, and use sparingly as can be addictive let your doctor know you will likely need an MRI, you have a lumbar herniation to L3-L4 please return with changes in bowel bladder, worsening pain, or with any new or worsening complaints Referrals: Yuly Waters NP [Primary Care Provider] - Discharge Data Discharge Date/Time-TO BE ENTERED AT DEPARTURE: 08/12/23 18:33 Medical Decision Making 63-year-old male, no acute distress presenting with low back pain and flank pain with radiation to his left leg Patient is afebrile and nontoxic, he has negative straight leg raise, he is neurovascularly intact, he has no abdominal bruit or pulsatile mass, actually no left lower quadrant abdominal pain I did repeat a CT scan abdomen pelvis with contrast and images lumbar spine as well, he does have a herniated disc at L3-L4 He has no signs or symptoms consistent with cauda equina syndrome He is feeling improvement after medications, will send in a Medrol Dosepak, refer to neurosurgery, placed on small amount of oxycodone and give muscle relaxant Patient is stable for discharge home at this time, will place neurosurgery referral Return precautions reviewed and patient expressed understanding Exam with lumbar spine tenderness, sacroiliac tenderness, negative straight leg raise, negative Babinski, DTRs and strength and sensation intact distally, neurovascularly intact HPI General Date/Time Provider Initiated Documentation: 08/12/23 15:24 . HPI Narrative: 63-year-old male presents with report of left flank pain, seen here several days ago for similar presentation. States the pain is persistent and worsening. Denies any chest pain or shortness of breath. Denies any changes in bowel or bladder, denies any significant change in the midline back pain. Denies any nausea or vomiting. Denies any history of illicit drug use. States pain is alleviated when he is in the supine position only. Denies any numbness to the groin region. Denies fever. Denies urinary symptoms. Related Data Home Medications Medication Instructions Recorded Confirmed aspirin 81 mg tablet,delayed 81 mg PO DAILY 10/29/13 05/10/23 release (Aspir-) lancets (OneTouch UltraSoft #100 ea 05/26/16 05/10/23 Lancets) blood sugar diagnostic (FollowapTouch #100 strips 01/27/19 05/10/23 Ultra Test strips) blood sugar diagnostic (OneTouch #100 ea 03/23/20 05/10/23 Ultra Blue Test Strip) amlodipine 10 mg tablet 10 mg PO DAILY #90 tab-caps 06/12/22 05/10/23 atenolol 50 mg tablet 50 mg PO DAILY #90 tabs 06/12/22 05/10/23 metformin 1,000 mg tablet 1,000 mg PO BID #180 tab-caps 06/12/22 05/10/23 lisinopril 30 mg tablet 30 mg PO DAILY #90 tabs 12/12/22 05/10/23 allopurinol 300 mg tablet 300 mg PO DAILY #90 tab-caps 01/03/23 05/10/23 atorvastatin 20 mg tablet 20 mg PO DAILY #90 tabs 03/06/23 05/10/23 glipizide 10 mg tablet, extended 20 mg PO DAILY #180 tab-caps 03/06/23 05/10/23 release 24 hr sitagliptin phosphate 100 mg 100 mg PO DAILY #90 tab-caps 03/06/23 05/10/23 tablet (Januvia) atenolol 100 mg tablet 100 mg PO DAILY #90 tabs 07/03/23 cyclobenzaprine 10 mg tablet 10 mg PO TID PRN #10 tabs 08/12/23 methylprednisolone 4 mg tablets in See Rx Instructions PO .COMPLEX 08/12/23 a dose pack ([employer])) #21 dose pk Previous Rx's Medication Instructions Recorded blood sugar diagnostic (OneTouch #100 strips 01/27/19 Ultra Test strips) blood sugar diagnostic (OneTouch #100 ea 03/23/20 Ultra Blue Test Strip) amlodipine 10 mg tablet 10 mg PO DAILY #90 tab-caps 06/12/22 atenolol 50 mg tablet 50 mg PO DAILY #90 tabs 06/12/22 metformin 1,000 mg tablet 1,000 mg PO BID #180 tab-caps 06/12/22 lisinopril 30 mg tablet 30 mg PO DAILY #90 tabs 12/12/22 allopurinol 300 mg tablet 300 mg PO DAILY #90 tab-caps 01/03/23 atorvastatin 20 mg tablet 20 mg PO DAILY #90 tabs 03/06/23 glipizide 10 mg tablet, extended 20 mg PO DAILY #180 tab-caps 03/06/23 release 24 hr sitagliptin phosphate 100 mg 100 mg PO DAILY #90 tab-caps 03/06/23 tablet (Januvia) atenolol 100 mg tablet 100 mg PO DAILY #90 tabs 07/03/23 cyclobenzaprine 10 mg tablet 10 mg PO TID PRN #10 tabs 08/12/23 methylprednisolone 4 mg tablets in See Rx Instructions PO .COMPLEX 08/12/23 a dose pack (Medrol ([employer])) #21 dose pk Allergies Allergy/AdvReac Type Severity Reaction Status Date / Time amoxicillin [From Augmentin] Allergy Severe severe Verified 05/10/23 08:34 rash with itching clavulanic acid Allergy Severe severe Verified 05/10/23 08:34 [From Augmentin] rash with itching General Stated Complaint: FlankPain JOHN: 3 PFSH All Active Problems (Updated 08/12/23 @ 18:14 by ANSON Escobar) Left flank pain (Acute) Herniated lumbar intervertebral disc (Acute) Gout (Acute) Diabetes mellitus type II, uncontrolled (Chronic) Essential hypertension (Acute) Hyperlipidemia (Acute) Obesity (Acute) Retinopathy (Acute 05/15/17) 05/15/17; [facility]; RIGHT EYE, MILD 02/18/18;[employer] LEFT EYE MILD RETINOPATHY 09/26/21 [facility] MILD RETINOPATHY OU. 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 Surgical History Appendectomy Status post appendectomy Social History Smoking/Tobacco Use Status: Former Tobacco Use Tobacco: How many years used: 4 Smoking risk assessment performed?: Yes Alcohol Intake: former Drug use: Never Caregiver/Support person: No Household members: family Housing: house Communication Needs: None and Corrective Lenses Do you need help understanding health information?: Never Pets and animals: No Sexually active: No Do you think of yourself as: bisexual Current gender identity: male What is your relationship status?: never How often do you talk on the phone with friends or family?: twice per week How often do you get together with friends or relatives?: twice per week How often do you attend hinduism or episcopal services?: decline to answer Do you belong to any clubs or organized social groups?: no Panel score (0-1 are the most socially isolated patients): 1 What type of physical activity do you participate in: walking Duration: 15-30 minutes/day Frequency: 3-4 times per week Deedee/Sikh: No preference Special deedee needs: No Seatbelt use: always Helmet use: No Drive intox or ride w/intox pick up driver: No Do you feel safe at home: Yes Do you feel safe in your relationship?: Yes Course Vital Signs Vital signs: Vital Signs Temperature 36.9 C 08/12/23 15:23 Pulse 70 08/12/23 15:23 Respiratory Rate 16 08/12/23 15:23 Blood Pressure 149/84 H 08/12/23 15:23 Pulse Oximetry 96 08/12/23 15:23 Temperature 36.4 C L 08/12/23 18:30 Temperature Source Tympanic 08/12/23 18:30 Pulse 70 08/12/23 15:23 Respiratory Rate 16 08/12/23 15:23 Respiratory Effort Normal 08/12/23 16:07 Blood Pressure 152/88 H 08/12/23 18:30 Blood Pressure Position Sitting 08/12/23 15:23 Pulse Oximetry 94 08/12/23 18:30 Oxygen Delivery Method Room Air 08/12/23 18:30 Oxygen Flow Rate 0 08/12/23 18:30 Pain Level 1 08/12/23 18:30 Lab/Test Results Lab/Test Results: Laboratory Tests Range/Units 08/12/23 08/12/23 08/12/23 15:55 15:55 17:19 WBC (4.4-10.8) 10^3/uL 12.74 H RBC (4.36-5.78) 10^6/uL 4.93 Hgb (13.5-17.5) g/dL 14.3 Hct (40.0-50.0) % 42.4 MCV (80-95) fL 86 MCH (27.0-33.0) pg 29.0 MCHC (32.0-36.0) % 33.7 RDW (11.8-14.1) % 12.5 Plt Count (130-400) 10^3/uL 372 MPV (8.0-11.0) fL 10.7 Immature Gran % 0.5 Neutrophils % 76.3 Lymphocytes % 12.1 Monocytes % 9.8 Eosinophils % 0.8 Basophils % 0.5 Nucleated RBC % (0.0-0.3) % 0.0 Absolute Neutrophils (1.2-6.7) 10^3/uL 9.72 H Absolute Lymphocytes (1.2-3.4) 10^3/uL 1.54 Absolute Monocytes (0.1-0.8) 10^3/uL 1.25 H Absolute Eosinophils (0.0-0.7) 10^3/uL 0.10 Absolute Basophils (0.0-0.2) 10^3/uL 0.06 Sodium (136-145) mmol/L 135 L Potassium (3.5-5.1) mmol/L 4.0 Chloride (98-107) mmol/L 96 L Carbon Dioxide (21.0-32.0) mmol/L 28.5 Anion Gap (3-11) mmol/L 10.5 BUN (7-18) mg/dL 17 Creatinine (0.70-1.30) mg/dL 1.2 Est GFR (CKD-EPI 2020) (mL/min/1.73m2) 67.11 Glucose (74-106) mg/dL 332 H Calcium (8.5-10.1) mg/dL 10.5 H Total Bilirubin (0.2-1.0) mg/dL 0.5 AST (15-37) U/L 10 L ALT (16-63) U/L 18 Alkaline Phosphatase (46-116) U/L 82 C-Reactive Protein (0.0-0.3) mg/dL 1.15 H Total Protein (6.4-8.2) g/dL 8.2 Albumin (3.4-5.0) g/dL 3.4 Lipase (16-77) U/L 78 H Urine Color (Yellow) Yellow Urine Clarity (Clear) Clear Urine pH (5-8) 5.5 Ur Specific [place] (1.005-1.025) 1.020 Urine Protein (Negative) mg/dL >=300 H Urine Ketones (Negative) mg/dL Negative Urine Blood (Negative) Small H Urine Nitrite (Negative) Negative Urine Bilirubin (Negative) Negative Urine Urobilinogen (Up to 0.2) mg/dL 0.2 Ur Leukocyte Esterase (Negative) Negative Urine RBC (0-2) HPF 3-5 H Urine WBC (0-5) HPF 0-2 Ur Epithelial Cells (Negative) HPF Moderate Urine Crystals (Negative) HPF Negative Urine Bacteria (Negative) HPF Few Urine Casts (Negative) LPF 0-2 Hyaline Urine Mucus (Negative) Moderate Ur Culture Indicated? No/Sq. Contamination Urine Glucose (Negative) mg/dL 500 H
== END 2023-08-12 18:33 | disposition home or self-care (01) ==
PROVIDERS: Emergency Provider Physician Assistant; PCP Nurse Practitioner Family
DX: M51.26 Other intervertebral disc displacement, lumbar region (principal); E11.319 Type 2 diabetes mellitus with unspecified diabetic retinopathy without macular edema; I10 Essential (primary) hypertension; E78.5 Hyperlipidemia, unspecified; Z79.82 Long term (current) use of aspirin; Z87.891 Personal history of nicotine dependence
CPT/HCPCS: 80053; 83690; 96374; 96375; 99285; 74177; 81003; 81015; 85025; 86140; 99284; J2270; J2405; J3490

== ENCOUNTER 2023-08-20 09:03 | Emergency (ER) | payer BC, SELFPAY ==
--- NOTE | 2023-08-20 09:00 | DI.MRI_ITS ---
Exam(s) MR LUMBAR SPINE WO EXAM: MR LUMBAR SPINE WO CLINICAL HISTORY: lumbar radiculopathy, left leg, unable to ambulate. TECHNIQUE: Multiplanar multisequence MRI of the Lumbar spine was performed. COMPARISON: There are no plain films of lumbar spine available at time of this MRI interpretation. FINDINGS: Five lumbar vertebrae are presumed. Conus medullaris is at normal level. There is no evidence of conus mass nor subjacent clumping of in trathecal nerve roots to suggest arachnoiditis. The distal thecal sac appears unremarkable.There is no evidence of Tarlov intrasacral cysts nor other significant findings within the sacral canal Bones:There are no fractures nor ominous osseous lesions in the lumbar vertebral bodies and visualize d sacrum. With respect to the individual levels... T12-L1: No significant findings L1-2: Normal disc height and signal. Mild annular bulging but without a focal disc herniation. No si gnificant central canal stenosis.No foraminal stenosis L2-3: Normal disc height. No disc herniation nor central canal stenosis.No foraminal stenosis.No fac et arthropathy. L3-4: Normal disc height. There is a posterior central disc herniation. This disc herniation extend s posteriorly 7 mm indenting the thecal sac. Approximately 1.7 cm wide and also extending up behind the L3 vertebral body for a distance of 1.3 cm.Results in an element of central canal stenosis. Exit ing right neural foramen is patent. There is some annular bulging in the floor of the exiting left n eural foramen but without prominent foraminal stenosis on either side at this level.Mild degenerative changes in the facet joints, left more than right. L4-5: This level exhibits asymmetric narrowing of the right-side of the disc space. There is posteri or annular bulging and posterior annular ridging at this level resulting in moderate central spinal c anal stenosis. There is also a superimposed posterior central-left of center disc herniation which e xtends posteriorly 4 mm, is 11 mm wide, and which extends superiorly behind the L4 vertebra for a dis tance of 12 mm. There is some annular stent into the floor of the exiting neural foramina but no pro minent foraminal stenosis on either side at this level. There are moderate-advanced degenerative alisha nges in both facet joints. There is no listhesis evident at this level. L5-S1: This level exhibits relatively preserved disc height. Posteriorly there is a small central rodriguez bligamentous disc protrusion which extends posteriorly 3 mm and is approximately 4 mm wide. Does not significantly impress the thecal sac and central canal dimensions are within normal limits. There a re moderate degenerative changes in both facet joints. There is mild-moderate foraminal stenosis on the left side, mostly related to degenerative facet arthropathy. Lesser amount of foraminal stenosis on right side. Soft tissues: Partially included kidney cysts bilaterally.Largest appears to be a 6 cm cyst in the m edial aspect of the left kidney. IMPRESSION: 1. Multilevel disc herniations as described above at L3-4, L4-5, and L5-S1 levels. The L5-S1 small c entral subligamentous disc herniation is probably less symptomatic clinically than findings at L3-4 a nd L4-5 levels. 2. No fractures. No significant listhesis. 3. Other findings as above. Discussed with ER provider DATA REPOSITORY:
[2023-08-20 09:06] VITALS: BP 147/129; PULSE 84; RESP 20; TEMP 36.7; O2SAT 94
[2023-08-20] MEDS: HYDROmorphone 2 MG/ML SYR 0.5 MG IVP (09:18)
[2023-08-20] MEDS: Dexamethasone 4 MG/ML VIAL IVP (09:18)
[2023-08-20 09:35] VITALS: BP 170/67; PULSE 78
[2023-08-20 09:42] LABS: Abs Immature Grans 0.11 10^3/uL (0.0-0.06); Absolute Basophil Count 0.06 10^3/uL (0.0-0.2); Absolute Eosinophil Count 0.14 10^3/uL (0.0-0.7); Absolute Lymphocyte Count 1.68 10^3/uL (1.2-3.4); Absolute Monocyte Count 1.29 10^3/uL (0.1-0.8); Absolute Neutrophil Count 12.58 10^3/uL (1.2-6.7); Basophils % 0.4; Eosinophils % 0.9; HCT 38.7 % (40.0-50.0); HGB 13.3 g/dL (13.5-17.5); Immature Grans % 0.7; Lymphocytes % 10.6; MCHC 34.4 % (32.0-36.0); MCV 85 fL (80-95); MPV 10.1 fL (8.0-11.0); Monocytes % 8.1; Neutrophils % 79.3; Platelet Count 286 10^3/uL (130-400); RBC 4.58 10^6/uL (4.36-5.78); RDW-SD 36.9 fL; WBC 15.87 10^3/uL (4.4-10.8)
[2023-08-20 09:46] VITALS: BP 169/60; PULSE 77
[2023-08-20 10:01] VITALS: BP 177/80; PULSE 97
[2023-08-20 10:01] LABS: ALT 17 U/L (16-63); AST 11 U/L (15-37); Albumin 3.1 g/dL (3.4-5.0); Alkaline Phosphatase 87 U/L (46-116); Anion Gap 11.5 mmol/L (3-11); BUN 20 mg/dL (7-18); Bilirubin, Total 0.5 mg/dL (0.2-1.0); CO2 26.5 mmol/L (21.0-32.0); CREATININE 1.2 mg/dL (0.70-1.30); Chloride 95 mmol/L (98-107); Estimated GFR 67.11 (mL/min/1.73m2); Glucose 366 mg/dL (74-106); Potassium 3.9 mmol/L (3.5-5.1); Sodium 133 mmol/L (136-145); Total Protein 7.7 g/dL (6.4-8.2)
[2023-08-20] MEDS: LORazepam 2 MG/ML VIAL 1 MG IVP (10:59)
--- NOTE | 2023-08-20 11:50 | ED.GENADUL_ITS ---
Discharge Plan Disposition Patient Disposition: Home Discharge Details Clinical Impression: Acute left lumbar radiculopathy Primary Care Provider: Yuly Waters ED Provider: Bruna Tariq Home Meds and New Rx's Prescriptions: New dexamethasone 4 mg tablet 4 mg PO DAILY Qty: 7 0RF gabapentin [Neurontin] 100 mg capsule 100 mg PO TID Qty: 30 0RF Continued amlodipine 10 mg tablet 10 mg PO DAILY Qty: 90 4RF atenolol 50 mg tablet 50 mg PO DAILY Qty: 90 4RF Rx Instructions: total dose 150 mg metformin 1,000 mg tablet 1,000 mg PO BID Qty: 180 3RF (DME) OneTouch Ultra Blue Test Strip Strip See Rx Instructions .ROUTE .MEDSUPPLY Qty: 100 4RF Rx Instructions: 2 times daily lisinopril 30 mg tablet 30 mg PO DAILY Qty: 90 3RF Januvia 100 mg tablet 100 mg PO DAILY Qty: 90 3RF atorvastatin 20 mg tablet 20 mg PO DAILY Qty: 90 3RF glipizide 10 mg tablet extended release 24hr 20 mg PO DAILY Qty: 180 3RF aspirin [Aspir-81] 81 MG tablet,delayed release (DR/EC) 81 mg PO DAILY (DME) lancets [OneTouch UltraSoft Lancets] 1 EACH misc 1 ea Miscellaneous BID Qty: 100 Rx Instructions: ultra mini glucometer E11.9 (DME) OneTouch Ultra Test strip 1 ea Miscellaneous BID Qty: 100 5RF Rx Instructions: ultramini glucometer E11.9 allopurinol 300 mg tablet 300 mg PO DAILY Qty: 90 4RF atenolol 100 mg tablet 100 mg PO DAILY Qty: 90 4RF lorazepam [Ativan] 1 mg tablet 1 mg PO ONCE PRN (Reason: anxiety) Qty: 1 0RF Rx Instructions: To be taken 30-45 before MRI, can use 0.5-1 tablet. cyclobenzaprine 10 mg tablet 10 mg PO TID PRNQty: 10 0RF methylprednisolone [Medrol (Jeremy)] 4 mg tablets,dose pack See Rx Instructions .ROUTE .COMPLEX Qty: 21 0RF Rx Instructions: orally per package directions Discharge Instructions Additional Instructions: Please follow-up with physical therapy Take your Neurontin, 100 mg at night to start and then he may increase to 100 mg 3 times a day, you may slowly increase the amount by 100 mg a day, use caution this can make you very drowsy and he should not drive while taking this medication Take 4 mg of Decadron for the next 3 days and then switch to 2 mg daily until the Decadron is completed Follow-up with physical therapy, follow-up with her primary care physician, you will need close outpatient reassessment Please return earlier should you have new or worsening complaints Stand Alone Forms: Physical Therapy Referral Referrals: Yuly Waters NP [Primary Care Provider] - 1 day Discharge Data Discharge Date/Time-TO BE ENTERED AT DEPARTURE: 08/20/23 14:07 Medical Decision Making 63-year-old gentleman presenting with recurrent back pain, reviewed prior history including CT scans which showed several lumbar disc herniations Denies any changes in bowel or bladder or signs concerning for cauda equina syndrome, weightbearing limited secondary discomfort per patient, negative Babinski, DTRs intact bilateral lower extremities, strength and sensation intact bilateral lower extremities, MRI shows L3-L4, L4-L5, and L5-S1 herniated disc this, slight impingement on thecal sac L3-L4 Patient is alert and oriented, his neurological exam is intact, he has no abdominal pain or abdominal procedure bruit or pulsatile mass, CT abdomen and p charo from several days ago does not show acute pathology, MRI was discussed with Dr. Holland, radiology and reviewed by me Case was discussed with Dr. Franco, neurosurgery at [facility] who reviewed films and does not see the need for emergent intervention, recommends Neurontin, steroid, and referral to physical therapy PT trial performed, patient ambulatory with walker in no acute distress, request discharge home Discharged with Neurontin and Decadron the recommendation of neurology and referred to PT HPI General Date/Time Provider Initiated Documentation: 08/20/23 09:08 . HPI Narrative: This 63-year-old male presents with left back pain with radiation into lower extremity. Received Tylenol by ambulance without improvement in symptoms, states that he is scheduled for an MRI, denies any changes in bowel or bladder, denies any saddle anesthesia. Denies fever or chills a history of illicit drug use. Denies any abdominal pain. States the pain is exacerbated with movement. Unable to lift himself out of bed this morning so called EMS. Was on Medrol taper, last dose today per patient. Did not take his meds today. Denies any significant change in pain. Related Data Home Medications Medication Instructions Recorded Confirmed aspirin 81 mg tablet,delayed 81 mg PO DAILY 10/29/13 08/20/23 release (Aspir-) lancets (OneTouch UltraSoft #100 ea 05/26/16 08/20/23 Lancets) blood sugar diagnostic (OneTouch #100 strips 01/27/19 08/20/23 Ultra Test strips) blood sugar diagnostic (OneTouch #100 ea 03/23/20 08/20/23 Ultra Blue Test Strip) amlodipine 10 mg tablet 10 mg PO DAILY #90 tab-caps 06/12/22 08/20/23 atenolol 50 mg tablet 50 mg PO DAILY #90 tabs 06/12/22 08/20/23 metformin 1,000 mg tablet 1,000 mg PO BID #180 tab-caps 06/12/22 08/20/23 lisinopril 30 mg tablet 30 mg PO DAILY #90 tabs 12/12/22 08/20/23 allopurinol 300 mg tablet 300 mg PO DAILY #90 tab-caps 01/03/23 08/20/23 atorvastatin 20 mg tablet 20 mg PO DAILY #90 tabs 03/06/23 08/20/23 glipizide 10 mg tablet, extended 20 mg PO DAILY #180 tab-caps 03/06/23 08/20/23 release 24 hr sitagliptin phosphate 100 mg 100 mg PO DAILY #90 tab-caps 03/06/23 08/20/23 tablet (Januvia) atenolol 100 mg tablet 100 mg PO DAILY #90 tabs 07/03/23 08/20/23 cyclobenzaprine 10 mg tablet 10 mg PO TID PRN #10 tabs 08/12/23 08/20/23 methylprednisolone 4 mg tablets in See Rx Instructions PO .COMPLEX 08/12/23 08/20/23 a dose pack (Medrol (Jeremy)) #21 dose pk lorazepam 1 mg tablet (Ativan) 1 mg PO ONCE PRN anxiety #1 tab 08/13/23 08/20/23 dexamethasone 4 mg tablet 4 mg PO DAILY #7 tabs 08/20/23 gabapentin 100 mg capsule 100 mg PO TID #30 caps 08/20/23 (Neurontin) Previous Rx's Medication Instructions Recorded blood sugar diagnostic (OneTouch #100 strips 01/27/19 Ultra Test strips) blood sugar diagnostic (OneTouch #100 ea 03/23/20 Ultra Blue Test Strip) amlodipine 10 mg tablet 10 mg PO DAILY #90 tab-caps 06/12/22 atenolol 50 mg tablet 50 mg PO DAILY #90 tabs 06/12/22 metformin 1,000 mg tablet 1,000 mg PO BID #180 tab-caps 06/12/22 lisinopril 30 mg tablet 30 mg PO DAILY #90 tabs 12/12/22 allopurinol 300 mg tablet 300 mg PO DAILY #90 tab-caps 01/03/23 atorvastatin 20 mg tablet 20 mg PO DAILY #90 tabs 03/06/23 glipizide 10 mg tablet, extended 20 mg PO DAILY #180 tab-caps 03/06/23 release 24 hr sitagliptin phosphate 100 mg 100 mg PO DAILY #90 tab-caps 03/06/23 tablet (Januvia) atenolol 100 mg tablet 100 mg PO DAILY #90 tabs 07/03/23 cyclobenzaprine 10 mg tablet 10 mg PO TID PRN #10 tabs 08/12/23 methylprednisolone 4 mg tablets in See Rx Instructions PO .COMPLEX 08/12/23 a dose pack (Medrol (Jeremy)) #21 dose pk lorazepam 1 mg tablet (Ativan) 1 mg PO ONCE PRN anxiety #1 tab 08/13/23 dexamethasone 4 mg tablet 4 mg PO DAILY #7 tabs 08/20/23 gabapentin 100 mg capsule 100 mg PO TID #30 caps 08/20/23 (Neurontin) Allergies Allergy/AdvReac Type Severity Reaction Status Date / Time amoxicillin [From Augmentin] Allergy Severe severe Verified 08/20/23 09:12 rash with itching clavulanic acid Allergy Severe severe Verified 08/20/23 09:12 [From Augmentin] rash with itching General Stated Complaint: Nk/Back Pain JOHN: 3 PFSH All Active Problems (Updated 08/20/23 @ 13:50 by ANSON Escobar) Left flank pain (Acute) Herniated lumbar intervertebral disc (Acute) Acute left lumbar radiculopathy (Acute) Gout (Acute) Diabetes mellitus type II, uncontrolled (Chronic) Essential hypertension (Acute) Hyperlipidemia (Acute) Obesity (Acute) Retinopathy (Acute 05/15/17) 05/15/17; [facility]; RIGHT EYE, MILD 02/18/18;[facility] LEFT EYE MILD RETINOPATHY 09/26/21 [facility] MILD RETINOPATHY [facility]. 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 Surgical History Appendectomy Status post appendectomy Social History Smoking/Tobacco Use Status: Former Tobacco Use Tobacco: How many years used: 4 Smoking risk assessment performed?: Yes Alcohol Intake: former Drug use: Never Caregiver/Support person: No Household members: family Housing: house Communication Needs: None and Corrective Lenses Do you need help understanding health information?: Never Pets and animals: No Sexually active: No Do you think of yourself as: bisexual Current gender identity: male What is your relationship status?: never How often do you talk on the phone with friends or family?: twice per week How often do you get together with friends or relatives?: twice per week How often do you attend worship or zoroastrianism services?: decline to answer Do you belong to any clubs or organized social groups?: no Panel score (0-1 are the most socially isolated patients): 1 What type of physical activity do you participate in: walking Duration: 15-30 minutes/day Frequency: 3-4 times per week Deedee/Holiness: No preference Special deedee needs: No Seatbelt use: always Helmet use: No Drive intox or ride w/intox subway train driver: No Do you feel safe at home: Yes Do you feel safe in your relationship?: Yes Course Vital Signs Vital signs: Vital Signs Temperature 36.7 C 08/20/23 09:06 Pulse 84 08/20/23 09:06 Respiratory Rate 20 08/20/23 09:06 Blood Pressure 147/129 H 08/20/23 09:06 Pulse Oximetry 94 08/20/23 09:06 Temperature 36.7 C 08/20/23 09:06 Temperature Source Oral 08/20/23 09:06 Pulse 97 H 08/20/23 10:01 Respiratory Rate 20 08/20/23 09:06 Respiratory Effort Normal 08/20/23 09:09 Blood Pressure 177/80 H 08/20/23 10:01 Blood Pressure Mean 116 08/20/23 10:01 Blood Pressure Position Supine 08/20/23 09:06 Pulse Oximetry 94 08/20/23 09:06 Oxygen Delivery Method Room Air 08/20/23 09:06 Oxygen Flow Rate 0 08/20/23 09:06 Pain Level 10 08/20/23 09:18 Lab/Test Results Lab/Test Results: Laboratory Tests Range/Units 08/20/23 08/20/23 09:33 09:33 WBC (4.4-10.8) 10^3/uL 15.87 H RBC (4.36-5.78) 10^6/uL 4.58 Hgb (13.5-17.5) g/dL 13.3 L Hct (40.0-50.0) % 38.7 L MCV (80-95) fL 85 MCH (27.0-33.0) pg 29.0 MCHC (32.0-36.0) % 34.4 RDW (11.8-14.1) % 12.0 Plt Count (130-400) 10^3/uL 286 MPV (8.0-11.0) fL 10.1 Immature Gran % 0.7 Neutrophils % 79.3 Lymphocytes % 10.6 Monocytes % 8.1 Eosinophils % 0.9 Basophils % 0.4 Nucleated RBC % (0.0-0.3) % 0.0 Absolute Neutrophils (1.2-6.7) 10^3/uL 12.58 H Absolute Lymphocytes (1.2-3.4) 10^3/uL 1.68 Absolute Monocytes (0.1-0.8) 10^3/uL 1.29 H Absolute Eosinophils (0.0-0.7) 10^3/uL 0.14 Absolute Basophils (0.0-0.2) 10^3/uL 0.06 Sodium (136-145) mmol/L 133 L Potassium (3.5-5.1) mmol/L 3.9 Chloride (98-107) mmol/L 95 L Carbon Dioxide (21.0-32.0) mmol/L 26.5 Anion Gap (3-11) mmol/L 11.5 H BUN (7-18) mg/dL 20 H Creatinine (0.70-1.30) mg/dL 1.2 Est GFR (CKD-EPI 2020) (mL/min/1.73m2) 67.11 Glucose (74-106) mg/dL 366 H Calcium (8.5-10.1) mg/dL 11.0 H Total Bilirubin (0.2-1.0) mg/dL 0.5 AST (15-37) U/L 11 L ALT (16-63) U/L 17 Alkaline Phosphatase (46-116) U/L 87 Total Protein (6.4-8.2) g/dL 7.7 Albumin (3.4-5.0) g/dL 3.1 L
[2023-08-20 13:58] VITALS: BP 142/80; PULSE 88; RESP 22; TEMP 36.8; O2SAT 98
--- NOTE | 2023-08-20 14:05 | PT.INIE ---
PT Notes Visit Reasons: TONNY Physical Therapy Inpatient Initial Evaluation Date: 08/20/2023 Referring Doctor: ANSON Escobar PT Orders: PT CONSULT: Eval/Treat Precautions: Fall. Standard. Activity as tolerated. Patient Profile/Admitting Diagnosis: [place] is a 63-year-old male with third visit to the ED for assessment due to worsening left flank pain and midline back pain. Lumbar spine MRI as of today, 08/20/2023 with the following findings: Conus medullaris is at normal level.? There is no evidence of conus mass nor subjacent clumping of intrathecal nerve roots to suggest arachnoiditis.? The distal thecal sac appears unremarkable.There is no evidence of Tarlov intrasacral cysts nor other significant findings within the sacral canal Bones:There are no fractures nor ominous osseous lesions in the lumbar vertebral bodies and visualized sacrum.? With respect to the individual levels... T12-L1: No significant findings L1-2: Normal disc height and signal. Mild annular bulging but without a focal disc herniation.? No significant central canal stenosis.No foraminal stenosis L2-3: Normal disc height.? No disc herniation nor central canal stenosis.No foraminal stenosis.No facet arthropathy. L3-4: Normal disc height.? There is a posterior central disc herniation.? This disc herniation extends posteriorly 7 mm indenting the thecal sac.? Approximately 1.7 cm wide and also extending up behind the L3 vertebral body for a distance of 1.3 cm.Results in an element of central canal stenosis.? Exiting right neural foramen is patent.? There is some annular bulging in the floor of the exiting left neural foramen but without prominent foraminal stenosis on either side at this level.Mild degenerative changes in the facet joints, left more than right. L4-5: This level exhibits asymmetric narrowing of the right-side of the disc space.? There is posterior annular bulging and posterior annular ridging at this level resulting in moderate central spinal canal stenosis.? There is also a superimposed posterior central-left of center disc herniation which extends posteriorly 4 mm, is 11 mm wide, and which extends superiorly behind the L4 vertebra for a distance of 12 mm.? There is some annular stent into the floor of the exiting neural foramina but no prominent foraminal stenosis on either side at this level.? There are moderate-advanced degenerative changes in both facet joints.? There is no listhesis evident at this level. L5-S1: This level exhibits relatively preserved disc height.? Posteriorly there is a small central subligamentous disc protrusion which extends posteriorly 3 mm and is approximately 4 mm wide.? Does not significantly impress the thecal sac and central canal dimensions are within normal limits.? There are moderate degenerative changes in both facet joints.? There is mild-moderate foraminal stenosis on the left side, mostly related to degenerative facet arthropathy.? Lesser amount of foraminal stenosis on right side. Soft tissues:? Partially included kidney cysts bilaterally.Largest appears to be a 6 cm cyst in the medial aspect of the left kidney. IMPRESSION: 1. Multilevel disc herniations as described above at L3-4, L4-5, and L5-S1 levels.? The L5-S1 small central subligamentous disc herniation is probably less symptomatic clinically than findings at L3-4 and L4-5 levels. 2. No fractures.? No significant listhesis. 3. Other findings as above. PMHX: All Active Problems?(Updated 08/12/23 @ 18:14 by ANSON Escobar) Left flank pain (Acute) Herniated lumbar intervertebral disc (Acute) Gout (Acute) Diabetes mellitus type II, uncontrolled (Chronic) Essential hypertension (Acute) Hyperlipidemia (Acute) Obesity (Acute) Retinopathy (Acute 05/15/17) 05/15/17; [facility]; RIGHT EYE, MILD 02/18/18;[facility] LEFT EYE MILD RETINOPATHY 09/26/21 [facility] MILD RETINOPATHY OU. Medical History? 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 Appendectomy Status post appendectomy Social History/Home Situation: Lives with brother and sister in a private home. Siblings support each other. Patient is independent with ambulation using front wheeled walker. Equipment Owned/DME: [employer], [employer] Subjective: Patient stated that when he came in his pain level was a 10/10 on the VAS. Upon PT evaluation pain level is now at 3/10 with rest and pain medication intake. States that since he went to the chiropractor back in May he thought that everything was good to be okay however things got worse. Reported pain mostly on the left low back that radiates to the front of his left thigh. Objective: General Observation: Supine in bed. Anxious about moving but worked hard at completing mobility assessment. Mental Status: Alert and oriented as to person, place, time, and purpose. Able to pay attention, focus, and respond appropriately. Pain: As above Vital Signs: Oxygen saturation low of 90% on RA and with movement ROM: Right Lower Extremity: Hip flexion WFL. Hip abduction WFL. Knee flexion WFL. Ankle dorsiflexion WFL. Ankle plantarflexion WFL. Left Lower Extremity: Hip flexion allows up to 45 degrees actively. Hip abduction WFL. Knee flexion WFL. Ankle dorsiflexion WFL. Ankle plantarflexion WFL. Strength: Right Lower Extremity: Hip flexors 4-/5. Hip abductors 4-/5. Knee flexors 4/5. Knee extensors 4-/5. Ankle dorsiflexors 4/5. Ankle plantarflexors 4/5. Left Lower Extremity: Hip flexors 3-/5. Hip abductors 4-/5. Knee flexors 4/5. Knee extensors 4-/5. Ankle dorsiflexors 4/5. Ankle plantarflexors 4/5. Bed Mobility/Transfers: Rolling independent L sidelying to sit modified independent using B UE for support Sit to supine minimal assist to L LE by PT Sit to stand stand by assist with verbal cueing provided to use B UE to push off edge of bed Stand to sit stand by assist with verbal cueing provided to use B UE toreach behind edge of bed to control descent onto bed Gait: Instructed patient with level surface ambulation of 50 feet requiring stand by assist using FWW. Arlene decreased. Step height and length asymmetric. reported some weakness with limb advancement on the L. Complained of fatigue and mild increase in pain after activity that subsided with rest. Balance: Static Sitting: Normal Dynamic Sitting: Normal Static Standing: Fair Dynamic Standing: Fair Special Tests: Mobility Limitations Standardized Measure [facility] AM-PAC 6 clicks Basic Mobility Inpatient Short Form: Raw Score: 23 CMS Score: 11% deficit Lasegue's Test: Positive on the L, negative on the R Lateralization of pain: To left anterior thigh with straight leg raise Slump test: Negative L2-L3 myotome: weak L3-L4 myotome : weak Informed Consent/Education: Patient was instructed in purpose of PT consult and plan of care. Agreeable to proceed with established PT POC to achieve personal goals. THERA EX: Trained patient with correct performance of exercises below to maximize motor control, joint flexibility, soft tissue extensibility of the low back hip musculature to facilitate return to independent functional mobility performance. Exercises - Gluteal Sets - 1 x daily - 7 x weekly - 1 sets - 10 reps - 5 hold - Pelvic Rock - 1 x daily - 7 x weekly - 1 sets - 10 reps - 5 hold - Knee slide outs - 1 x daily - 7 x weekly - 1 sets - 10 reps - 5 hold - Bridging - 1 x daily - 7 x weekly - 1 sets - 10 reps - 5 hold Assessment: L2-L3 and L4-L5 radiculopathy present due to posterior herniation of disks. Extension based exercises do not cause pain. Will require continuation of back rehabilitation at OP clinic to manage pain, ongoing strength deficits while optimizing functional mobility performance. Neurosurgery referral for consult has been put in place. 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 Patient presents with clinical signs and symptoms consistent with current/admitting diagnoses that have resulted to mobility limitations, gait instability, generalized weakness, and overall ADL decline as demonstrated by the following impairment level findings: 1. Decreased strength to L LE major muscle groups 2. Impaired standing balance 3. Impaired activity tolerance 4. Limitation of joint range of motion in L hip and knee 5. Pain in low back and L hip that radiates to front of thigh Impairments are contributing to the following functional limitations: 1. Decline in bed mobility skills 2. Decline in transfer skills 3. Difficulty with ambulation without assistive device and physical assistance 4. Increased completion time for mobility ADL performance 5. Increased risk for falls 6. Difficulty with managing steps alone safely Patient is assessed as a 06025 moderate complexity based on the following: History: [id number] with past medical history as indicated above Examination: Demonstrable impairment in strength, balance, and mobility level with underlying impairments and functional limitations as exhibited above as well as deficit score of 11% utilizing the [facility] Mobility Inpatient Short Form Presentation: Evolving Decision Makin moderate complexity Goals: N/A. PT evaluation 1 treatment session only for HEP and functional mobility training. Plan of Care/Treatment Plan: N/A. PT evaluation 1 treatment session only for HEP and functional mobility training. DISCHARGE RECOMMENDATIONS: [] Home with no services [] [] Home with services [specify] [X] Home with outpatient PT for pain management, back rehabitation, and functional mobility retraining. [] SNF for continued rehabilitation [] [] Jail Care [] [] SNF versus LTC based on ability to participate and progress [] TREATMENT CODE/TIME: 23313 x 20 minutes, [id number] x 17 minutes beginning at 13:20 PM Thank you for the opportunity to participate in the care of this patient. Fátima Evans PT, DPT, CLT [facility] [place], [place]
--- NOTE | 2023-08-20 14:12 | NUR.NOTE ---
Referral faxed to PCP for lumbar radiculopathy for next week. Nursing Note:
== END 2023-08-20 14:07 | disposition home or self-care (01) ==
PROVIDERS: Emergency Provider Physician Assistant; PCP Nurse Practitioner Family
DX: M51.16 Intervertebral disc disorders with radiculopathy, lumbar region; I10 Essential (primary) hypertension; E11.9 Type 2 diabetes mellitus without complications; Z79.84 Long term (current) use of oral hypoglycemic drugs; Z79.899 Other long term (current) drug therapy
CPT/HCPCS: 36415; 80053; 96374; 96375; 97162; 97530; 99285; 72148; 85025; J1100; J1170; J2060

== ENCOUNTER 2025-06-23 10:41 | Outpatient (CLI) | payer MEDICARE, SELFPAY ==
--- NOTE | 2025-06-23 11:23 | DI.RAD_ITS ---
Exam(s) XR ANKLE RT COMPLETE EXAM: XR ANKLE RT COMPLETE CLINICAL HISTORY: ankle pain M25.579. TECHNIQUE: 2D digital imaging was performed. COMPARISON: CR LEFT ANKLE COMPLETE from 06/05/2009 FINDINGS: 3 views There is soft tissue swelling on the lateral aspect of the ankle. There is somewhat confusing appearance of the distal fibula at the ankle mortise level. May be related to prior fracture. There is no widening the ankle mortise. Talar dome unremarkable. There calcifications on the medial aspect of the ankle which are either related to prior injuries or accessory ossicles. There does appear to be an ankle joint effusion. There is a moderate size inferior calcaneal spur and a large enthesophyte on the posterior calcaneus Achilles insertion site. There is also a prominent os trigonum on the posterior aspect of the ankle. There is no osseous tarsal coalition. IMPRESSION: As above. If clinically indicated follow-up CT scan or MRI can be performed. DATA REPOSITORY: RADIATION DOSE DELIVERED:
== END 2025-06-23 11:01 ==
LOC: DI 10:43
PROVIDERS: PCP Nurse Practitioner Family; Visit Provider Registered Nurse
DX: M25.579 Pain in unspecified ankle and joints of unspecified foot (principal)
CPT/HCPCS: 73610